=== PATIENT | male | born 1940 ===

== ENCOUNTER 2025-02-22 15:21 | Emergency (ER) | payer MEDICARE, OTHER ==
[2025-02-22 15:43] LABS: BASOPHILS PERCENT AUTO 0.3 % (0.0-1.0); EOSINOPHILS PERCENT AUTO 1.6 % (1.0-3.0); LYMPHOCYTES PERCENT AUTO 25.8 % (20.5-50.1); MONOCYTES PERCENT AUTO 9.5 % (2-8); NEUTROPHILS PERCENT AUTO 62.8 % (42.2-75.2); PLATELET COUNT,PLT 255 10^3/uL (150-450); RED BLOOD CELL COUNT 3.98 10^6/uL (4.6-6.2); WHITE BLOOD CELL COUNT,WBC 6.3 10^3/uL (5.0-10.0)
[2025-02-22 15:56] LABS: B-TYPE NATRIURETIC PEPTIDE,BNP 114 pg/ml (0-100)
[2025-02-22 16:04] LABS: ALANINE AMINOTRANSFERASE,ALT 20 U/L (16-63); ASPARTATE AMNIOTRANSFERASE,AST 28 U/L (15-37); BILIRUBIN TOTAL 0.5 mg/dL (0.2-1.0); BLOOD UREA NITROGEN,BUN 57 mg/dL (7-18); CARBON DIOXIDE,CO2 30 mmol/L (21-32); CHLORIDE,CL 100 mmol/L (98-107); CREATININE 2.42 mg/dL (0.70-1.30); GLUCOSE RANDOM 111 mg/dL (70-99); PHOSPHORUS 3.9 mg/dL (2.6-4.7); POTASSIUM,K 3.9 mmol/L (3.5-5.1); PROTEIN TOTAL,TP 6.1 g/dL (6.4-8.2); SODIUM,NA 140 mmol/L (136-145)
[2025-02-22 16:05] LABS: A/G RATIO 0.97; ESTIMATED GFR 26 mL/min (>=60)
[2025-02-22] MEDS: Diphtheria,Pertussis(Acell),Tetanus Vaccine 0.5 ML Syringe IM ONE (16:14)
[2025-02-22 16:22] LABS: INR 1.0 (0.9-1.2)
[2025-02-22] MEDS: Lidocaine 1% with EPINEPHrine 1:100,000 20 ML MDV INJECT ONE (16:41)
== END 2025-02-22 18:00 | disposition home or self-care (01) ==
LOC: DL.ED 15:26
DX: S01.01XA Laceration without foreign body of scalp, initial encounter (principal); R55 Syncope and collapse; W22.8XXA Striking against or struck by other objects, initial encounter
CPT/HCPCS: 12004; 36415; 70450; 71045; 72125; 80053; 83735; 83880; 84100; 84484; 85025; 85610; 90471; 90715; 93010; 99284; 99285; A9270; J2004